=== PATIENT | female | born 1990 | race Caucasian/White ===

== ENCOUNTER 2017-05-27 23:40 | Emergency (ER) | payer SELFPAY ==
[2017-05-27] MEDS ORDERED: IPRATROPIUM/ALBUTEROL 0.5-2.5 MG/3 ML AMPUL NEB ONE (23:52)
[2017-05-27] MEDS ORDERED: PREDNISONE 20 MG TABLET PO ONE (23:52)
[2017-05-28] MEDS ORDERED: ALBUTEROL SULFATE 0.083% NEB 2.5 MG/3 ML AMPUL NEB SCH (00:07)
[2017-05-28] MEDS ORDERED: ALBUTEROL SULFATE 0.083% NEB 2.5 MG/3 ML AMPUL NEB ONE (00:30)
[2017-05-28] MEDS ORDERED: ALBUTEROL SULFATE HFA (90 MCG/PUFF) 8 GM MDI (1 MDI/ER DISP) IH ONE (00:31)
--- NOTE | 2017-05-28 01:02 | RADIOLOGY REPORT (SQ) ---
EXAM DESCRIPTION: CHEST SINGLE VIEW COMPLETED DATE/TIME: 05/28/2017 12:43 am REASON FOR STUDY: COPD ASTHMA COMPARISON: None. EXAM PARAMETERS: NUMBER OF VIEWS: One view. TECHNIQUE: Single frontal radiographic view of the chest acquired. RADIATION DOSE: NA LIMITATIONS: None. FINDINGS: LUNGS AND PLEURA: No consolidation, pneumothorax or pleural effusion. There is a 7 mm nod ularity at the right lung base. MEDIASTINUM AND HILAR STRUCTURES: No masses. Contour normal. HEART AND VASCULAR STRUCTURES: Heart normal in size. No overt vascular congestion. BONES: No acute findings. HARDWARE: None in the chest. IMPRESSION: No consolidation or pleural effusion. 7 mm nodularity at the right lung base, may repre sent an end-on vessel versus a pulmonary nodule. Comparison with prior studies would be helpful. Ot elias, CT thorax can help in better evaluation. TECHNICAL DOCUMENTATION: JOB ID: [id number]
--- NOTE | 2017-05-28 01:03 | ER Document Report ---
ED Respiratory Problem - General Mode of Arrival: Ambulatory Information source: Patient TRAVEL OUTSIDE OF THE [place] IN LAST 30 DAYS: No - HPI Similar symptoms previously: Yes Recently seen / treated by doctor: No <JOSE NORRIS - Last Filed: 05/28/17 01:50> <SUZETTE PERRIN - Last Filed: 05/28/17 02:51> - General Chief Complaint: Shortness Of Breath Stated Complaint: TROUBLE BREATHING Time Seen by Provider: 05/28/17 00:21 - HPI Notes: Patient is a 26 year old female presenting to the emergency department for a possible asthma exacerbation. Patient is out of her nebulizer medication and rescue inhalers. Patient states she has had asthma since she was a child. Patient states she went to [place] to help move her grandmother. Patient states there was lots of dust and old furniture to move. Patient states she has had symptoms of cough, congestion, short of breath and wheezing which has increasingly gotten worse over the last week. Patient denies any sputum or fever. Patient states she takes an allergy medication each day. (JOSE NORRIS) - Related Data Allergies/Adverse Reactions: No Known Allergies Allergy (Unverified 05/28/17 01:31) Past Medical History - General Information source: Patient - Social History Smoking Status: Never Smoker Cigarette use (# per day): No Chew tobacco use (# tins/day): No Smoking Education Provided: No Frequency of alcohol use: None Drug Abuse: None Family History: None Patient has suicidal ideation: No Patient has homicidal ideation: No Pulmonary Medical History: Reports: Hx Asthma Surgical Hx: Negative <JOSE NORRIS - Last Filed: 05/28/17 01:50> Review of Systems - Review of Systems Constitutional: No symptoms reported. denies: Fever EENT: See HPI, Nose congestion, Nose discharge Respiratory: See HPI, Cough, Short of breath, Wheezing. denies: Sputum <JOSE NORRIS - Last Filed: 05/28/17 01:50> - Review of Systems Gastrointestinal: No symptoms reported. denies: Vomiting Skin: No symptoms reported Neurological/Psychological: No symptoms reported -: Yes All other systems reviewed and negative <SUZETTE PERRIN - Last Filed: 05/28/17 02:51> Physical Exam - Vital signs Interpretation: Normal <JOSE NORRIS - Last Filed: 05/28/17 01:50> <SUZETTE PERRIN - Last Filed: 05/28/17 02:51> - Vital signs Vitals: Temp Pulse Resp BP Pulse Ox 97.9 F 94 16 136/73 H 97 05/27/17 23:49 05/27/17 23:49 05/27/17 23:49 05/27/17 23:49 05/27/17 23:49 - Notes Notes: GENERAL: Alert, interacts well. No acute distress. HEAD: Normocephalic, atraumatic. EYES: Pupils equal, round, and reactive to light. Extraocular movements intact. ENT: Oral mucosa moist, tongue midline. Turbinate edema, pale, clear rhinorrhea. Right TM intact. Left TM is bulging with clear fluid, injected. NECK: Full range of motion. Supple. Trachea midline. LUNGS: Non-productive cough. Moderate expiratory wheeze which is more severe anteriorly. Prolonged expiratory phase. No respiratory distress. HEART: Regular rate and rhythm. No murmurs, gallops, or rubs. ABDOMEN: Soft, non-tender. Non-distended. Bowel sounds present in all 4 quadrants. EXTREMITIES: Moves all 4 extremities spontaneously. No edema. No cyanosis. NEUROLOGICAL: Alert and oriented x3. Normal speech. PSYCH: Normal affect, normal mood. SKIN: Warm, dry, normal turgor. No rashes or lesions noted. (JOSE NORRIS) Course <JOSE NORRIS - Last Filed: 05/28/17 01:50> <SUZETTE PERRIN - Last Filed: 05/28/17 02:51> - Re-evaluation Re-evalutation: 05/28/17 01:41 Chest x-ray shows no acute process, there is a question of a nodule versus an end-on vessel. Patient was given 2 breathing treatments, wheezing significantly resolved, no evidence of pneumonia, patient will be started on steroids and albuterol, discharged home. (SUZETTE PERRIN) - Vital Signs Vital signs: Temp Pulse Resp BP Pulse Ox 97.9 F 99 20 167/66 H 100 05/27/17 23:49 05/28/17 02:06 05/28/17 02:06 05/28/17 02:06 05/28/17 02:06 Discharge <JOES NORRIS - Last Filed: 05/28/17 01:50> <SUZETTE PERRIN - Last Filed: 05/28/17 02:51> - Discharge Clinical Impression: Acute exacerbation of asthma with allergic rhinitis Hypertension Qualifiers: Hypertension type: essential hypertension Qualified Code(s): I10 - Essential ( primary) hypertension Condition: Stable Disposition: HOME, SELF-CARE Additional Instructions: Take albuterol 2 puffs every 4 hours as needed for wheezing. Please take the prednisone as directed until it is gone. Please continue taking your steroid inhaler and/or antihistamine. Your chest x-ray did show a small nodule at the base of your lung on the right, this is likely simply a blood vessel that was seen on the x-ray however you will need to have your x-ray repeated in 6 months to ensure that it does not get any bigger. Prescriptions: Prednisone [Deltasone 20 mg Tablet] 3 tab PO DAILY 5 Days tablet Forms: Elevated Blood Pressure Scribe Attestation: 05/28/17 02:51 I personally performed the services described in the documentation, reviewed and edited the documentation which was dictated to the scribe in my presence, and it accurately records my words and actions. (SUZETTE PERRIN) Scribe Documentation - Scribe Written by Emi:: Emi Cabral 05/28/2017 1:54 acting as scribe for :: Kristan <JOSE NORRIS - Last Filed: 05/28/17 01:50>
[2017-05-28 02:09] VITALS: BP 167/66
== END 2017-05-28 02:06 | disposition home or self-care (01) ==
LOC: ER 23:40
DX: J45.901 Unspecified asthma with (acute) exacerbation (principal); J30.9 Allergic rhinitis, unspecified; I10 Essential (primary) hypertension; R06.02 Shortness of breath; R05 Cough; R09.81 Nasal congestion
CPT/HCPCS: 94640 ×2; 99284; 71010; J7512; J3490; J7620